=== PATIENT | female | born 1970 | race Caucasian/White ===

== ENCOUNTER → 2018-03-01 | Outpatient (CLI) | payer SELFPAY ==
--- NOTE | 2018-03-02 11:24 | MM ---
Reason for exam: additional evaluation requested from abnormal screening. Last mammogram was performed 1 month ago. History: Family history of breast cancer in mother at age 45 and breast cancer in grandmother. Benign excisional biopsy of the right breast, 2002. Took progesterone for 4 months. Physical Findings: Nurse Summary: 1.5cm nodule in the right breast at 1 o'clock (nurse ann marie). MG Work Up Mamm w CAD RT Spot compression CC, spot compression MLO, and LM view(s) were taken of the right breast. Prior study comparison: February 12, 2018, bilateral [facility] screening mammo. February 09, 2017, bilateral [facility] screening mammo. Finding: There is a 18 mm obscured round mass in the inner quadrant, middle posterior position of the right breast, does not go away on additional views. These results were verbally communicated with the patient and result sheet given to the patient on 03/01/18. ASSESSMENT: Incomplete: need additional imaging evaluation, BI-RAD 0 RECOMMENDATION: Ultrasound of the right breast.
--- NOTE | 2018-03-02 11:28 | USB ---
Reason for exam: additional evaluation requested from abnormal screening. History: Family history of breast cancer in mother at age 45 and breast cancer in grandmother. Benign excisional biopsy of the right breast, 2002. Took progesterone for 4 months. US Breast Workup Limited RT Right limited breast ultrasound including focal area of concern, retroareolar and axilla demonstrates a 8 x 6 x 7mm oval, mixed lesion at 12 o'clock and a 22 x 11 x 22mm lobular, solid, hypoechoic lesion at 1 o'clcok BB. These results were verbally communicated with the patient and result sheet given to the patient on 03/01/18. ASSESSMENT: Suspicious, BI-RAD 4 RECOMMENDATION: Ultrasound core biopsy of the right breast. (2 sites) Called Dr. Maria with mammographic findings, per office: schedule biopsy with radiologist, will follow up with PCP for results. Biopsy scheduled for 03/05/18. PRELIMINARY REPORT CALLED AND FAXED TO DR. MARIA ON 03/02/18.
== END | disposition home or self-care (01) ==
LOC: RADMAMWWP 10:41
PROVIDERS: ATTEND Family Medicine
DX: R92.8 Other abnormal and inconclusive findings on diagnostic imaging of breast (principal)
CPT/HCPCS: 77065

== ENCOUNTER → 2018-03-05 | Day surgery (SDC) | payer SELFPAY ==
[2018-03-05 13:50] VITALS: RESP 16; BMI 24.5
[2018-03-05 15:11] VITALS: BP 112/75; PULSE 60; TEMP 97.7
--- NOTE | 2018-03-05 15:28 | USB ---
EXAMINATION TYPE: US breast aspiration single RT DATE OF EXAM: 03/05/2018 HISTORY: Right breast mass 1:00. FINDINGS: Maximal barrier technique was utilized. The skin overlying a suitable path to the patient's 1:00 right breast mass was localized with ultrasound and the overlying skin prepped and draped. Ultrasound was utilized with sterile technique. Lidocaine was used for local anesthesia. Aspiration was performed with a 25-gauge needle a yellow fluid was obtained. 21-gauge needle was then advanced into the lesion at 1:00 and cleared jellylike type material was aspirated and submitted formalin to pathology. Following the procedure, hemostasis achieved and the patient is discharged in stable condition without complication. IMPRESSION:STATUS POST ULTRASOUND GUIDED FINE-NEEDLE ASPIRATION OF 1:00 right breast MASS, PATHOLOGY IS PENDING. THIS PROCEDURE IS PERFORMED BY THE UNDERSIGNED. Pathology Results: Benign A. RIGHT BREAST, 12:00, ASPIRATE: Virtually acellular specimen, non-diagnostic. B. RIGHT BREAST, 1300, ASPIRATE: Dense acute inflammatory cells and macrophages consistent with inflamed cyst contents versus abscess. Recommendation Follow up ultrasound of the right breast in 6 months. SIENNA
--- NOTE | 2018-03-05 15:30 | USB ---
EXAMINATION TYPE: US breast aspiration ea add RT DATE OF EXAM: 03/05/2018 HISTORY: 12:00 right breast mass. FINDINGS: Maximal barrier technique was utilized. The skin overlying a suitable path to the patient's mass was localized with ultrasound and the overlying skin prepped and draped. Ultrasound was utilized with sterile technique. Lidocaine was used for local anesthesia. 18-gauge needle was advanced into the 12:00 right breast mass and fluid was aspirated which is cloudy yellow. Specimen submitted to laboratory for analysis. Following the procedure, hemostasis achieved and the patient is discharged in stable condition without complication. IMPRESSION:STATUS POST ULTRASOUND GUIDED FINE NEEDLE ASPIRATION OF 12:00 right breast MASS, PATHOLOGY IS PENDING. THIS PROCEDURE IS PERFORMED BY THE UNDERSIGNED. Pathology Results: Benign A. RIGHT BREAST, 12:00, ASPIRATE: Virtually acellular specimen, non-diagnostic. B. RIGHT BREAST, 1300, ASPIRATE: Dense acute inflammatory cells and macrophages consistent with inflamed cyst contents versus abscess. Recommendation Follow up ultrasound of the right breast in 6 months. SIENNA
== END ==
LOC: RADUSWWP 13:27
PROVIDERS: ATTEND Family Medicine
DX: N63.10 Unspecified lump in the right breast, unspecified quadrant (principal); N63.12 Unspecified lump in the right breast, upper inner quadrant; R92.8 Other abnormal and inconclusive findings on diagnostic imaging of breast
CPT/HCPCS: 88108; 88305; 76942; 10022; J2001

== ENCOUNTER → 2021-02-08 | Outpatient (CLI) | payer SELFPAY ==
--- NOTE | 2021-02-09 07:46 | MM ---
Reason for exam: additional evaluation requested from abnormal screening. Last mammogram was performed less than 1 month ago. History: Patient is postmenopausal. Family history of breast cancer in mother at age 45 and breast cancer in grandmother. Benign US breast aspiration ea add RT of the right breast, March 05, 2018. Benign US breast aspiration single RT of the right breast, March 05, 2018. Benign excisional biopsy of the right breast, 2002. Took progesterone for 4 months. Physical Findings: Nurse did not find any significant physical abnormalities on exam. MG 3D Work Up W/Cad RT Spot compression CC, spot compression MLO, and LM view(s) were taken of the right breast. Prior study comparison: January 28, 2021, bilateral [facility] screening mammo. February 13, 2020, bilateral [facility] screening mammo. February 04, 2019, bilateral [facility] screening mammo. The breast tissue is heterogeneously dense. This may lower the sensitivity of mammography. Right breast asymmetry does not persist and presumably represents overlapping fibroglandular tissue. These results were verbally communicated with the patient and result sheet given to the patient on 02/08/21. ASSESSMENT: Negative, BI-RAD 1 RECOMMENDATION: Return to routine screening mammogram schedule for both breasts.
== END | disposition home or self-care (01) ==
LOC: RADMAMWWP 15:01
PROVIDERS: ATTEND Family Medicine
DX: R92.2 Inconclusive mammogram (principal); Z80.3 Family history of malignant neoplasm of breast
CPT/HCPCS: 77061; 77065